=== PATIENT | female | born 1990 | race Caucasian/White ===

== ENCOUNTER 2021-08-19 17:03 | Emergency (ER) | payer OTHER ==
[~2021-08-19] VITALS: Ht 165.1 cm; Wt 59.9 kg
--- NOTE | 2021-08-19 17:32 | NUR ---
TO ER BED 16, C/O VAGINAL BLEEDING X 2WKS WITH ABD PAIN -N/V, DENIES , AAOX3, BREATHING EVEN AND NON LABORED, AWAITING MD ORDERS
--- NOTE | 2021-08-19 18:30 | NUR ---
URINE COLLECTED AND SENT TO LAB
--- NOTE | 2021-08-19 18:41 | NUR ---
BLOOD SAMPLES COLLECTED AND SENT TO LAB
[2021-08-19 19:22] LABS: ALBUMIN 3.9 g/dL (3.4-5.0); BILIRUBIN,TOTAL 0.2 mg/dL (0.2-1.0); CALCIUM, SERUM 9.1 mg/dL (8.5-10.1); CREATININE 0.9 mg/dL (0.6-1.3); POTASSIUM 3.6 mmol/L (3.5-5.1); TOTAL PROTEIN, SERUM 7.3 g/dL (6.4-8.2)
[2021-08-19 19:47] LABS: BILIRUBIN,URINE NEGATIVE (NEGATIVE); COLOR,URINE YELLOW (YELLOW); LEUKOCYTE ESTERASE ,URINE SMALL (NEGATIVE); NITRITE, URINE NEGATIVE (NEGATIVE); PH,URINE 6.5 (5.0-8.0); PROTEIN,URINE TRACE mg/dl (NEGATIVE); UGLUCOSE NEGATIVE (NEGATIVE); UROBILINOGEN,URINE 0.2 EU/dL (0.2)
[2021-08-19 19:54] LABS: BACTERIA,URINE 2+ /HPF (None Seen); BASOPHILS # (AUTO) 0.1 K/uL (0.0-0.2); BASOPHILS % (AUTO) 0.8 % (0.0-2.0); EOSINOPHILS % (AUTO) 1.6 % (0.0-6.0); HEMATOCRIT 38 % (33-45); HEMOGLOBIN 12.8 g/dL (11.5-14.8); LYMPHOCYTES % (AUTO) 32.1 % (20.0-44.0); MEAN CORPUSCULAR HGB CONC 34 g/dl (31.0-36.0); MEAN CORPUSCULAR VOLUME 89 fL (82-100); MONOCYTES # (AUTO) 0.6 K/uL (0.1-1.30); MONOCYTES % (AUTO) 9.1 % (2.0-12.0); MUCUS,URINE Few /LPF (None Seen); NEUTROPHILS # (AUTO) 3.4 K/uL (1.8-8.9); NEUTROPHILS % (AUTO) 56.4 % (43.0-81.0); PLATELET COUNT (AUTO) 243 K/uL (150-450); RBC,URINE 21-50 /HPF (0-2); WHITE BLOOD COUNT (AUTO) 6.1 K/uL (4.3-11.0)
[2021-08-19] MEDS ORDERED: CEPH500T PO ×2 (20:13→20:17)
[2021-08-19] MEDS ORDERED: PHEN-894 PO (20:13)
--- NOTE | 2021-08-19 20:44 | NUR ---
NOT CANDIDATE FOR RHOGAM
--- NOTE | 2021-08-19 21:09 | NUR ---
Patient discharged to home in stable condition. Written and verbal after care instructions given. Patient verbalizes understanding of instruction.
[2021-08-19 21:10] VITALS: BP 129/88
== END 2021-08-19 22:52 | disposition home or self-care (01) ==
LOC: ER 17:03
DX: N39.0 Urinary tract infection, site not specified (principal); J45.909 Unspecified asthma, uncomplicated; Z88.8 Allergy status to other drugs, medicaments and biological substances; Z60.2 Problems related to living alone; Z79.899 Other long term (current) drug therapy
CPT/HCPCS: 36415; 76856-TC; 80048-TC; 80076-TC; 81001; 84702-TC; 84703-TC; 85025-TC; 85730-TC; 87086-TC